=== PATIENT | male | born 1960 | race Caucasian/White ===

== ENCOUNTER 2021-06-19 13:01 | Emergency (ER) | payer OTHER, SELFPAY ==
[2021-06-19 13:14] VITALS: BP 113/61; PULSE 59; RESP 16; TEMP 36.3; O2SAT 97
--- NOTE | 2021-06-19 14:08 | ED.GENADULT ---
HPI - General Adult General Chief complaint: Upper Respiratory Infection Stated complaint: congestion Source: patient Mode of arrival: ambulatory Limitations: no limitations History of Present Illness HPI narrative: Patient is a 60-year-old male presents to the [facility] via POV for evaluation of upper respiratory symptoms that been present for 1 week. Additionally, he reports chest congestion, nasal congestion, sinus congestion, nonproductive cough, and fatigue. Afrin provides minimal relief. Nothing worsens symptoms. Patient reports he is fully vaccinated against Covid. Denies known exposure to sick contacts. Related Data Home Medications Medication Instructions Recorded Confirmed atenolol 50 mg PO DAILY 06/28/19 06/19/21 nitroglycerin [Nitrostat] 0.4 mg SUBLINGUAL PRN PRN 06/28/19 06/19/21 rosuvastatin 20 mg PO DAILY 06/28/19 06/19/21 aspirin [Baby Aspirin] 81 mg PO DAILY 06/19/21 06/19/21 Allergies Allergy/AdvReac Type Severity Reaction Status Date / Time No Known Allergies Allergy Verified 06/19/21 13:13 Review of Systems Review of Systems: Denies history of renal insufficiency, diabetes mellitus, COPD, bronchitis, asthma, and pneumonia. He reports a history of hypertension that is controlled with antihypertensives. History of tobacco use. Patient state he quit using tobacco approximately 15 years ago. Pertinent negatives: fever, sweats, chills, change in appetite, fatigue, skin color changes, headache, nasal discharge, dizziness, lymphadenopathy, ear pain/drainage, chest pain, heart murmurs, heart palpitations, shortness of breath, wheezing, cyanosis, hemoptysis, hoarseness, orthopnea, pleuritic pain, nausea, vomiting, diarrhea, and myalgias. [facility] Past Medical History Medical History (Updated 06/19/21 @ 14:06 by ERICA Erwin, ) CAD (coronary artery disease) HLD (hyperlipidemia) Surgical History Surgical History No significant past surgical history Family History Family History Other Heart disease Hypertension Squamous cell carcinoma Social History Social History Years smoked: 18 Smoking status: Former smoker Comments I have reviewed and agree with the patient's past medical, surgical, social, and family hx as documented by the RN. There is no relevant family history pertinent to the presenting complaint. Exam Narrative: GENERAL: Well-appearing, well-nourished, and in no acute distress. HEAD: Normocephalic, atraumatic. Moderate maxillary sinus tenderness. No facial swelling appreciated. EYES: PERRLA and EOMI. No evidence of erythema, swelling, or drainage. ENT: Bilateral external ears and ear canals normal. Bilateral TMs are normal.No TM perforation. Nares clear, no rhinorrhea or epistaxis. Bilateral turbinates are with moderate erythema and swelling. Mucous membranes moist and pink. Uvula is midline without erythema and swelling. No evidence of petechial rash, cobblestoning, lesions, ulcers, erythema, swelling, exudates, peritonsillar abscess, tenting, or drooling. Breath odor and voice normal. NECK: Supple. No Lymphadenopathy or nuchal rigidity appreciated. CHEST: Bilateral lung angulo are clear to auscultation. No respiratory distress. No evidence of cough or pleuritic cp upon examination. HEART: Regular rate and rhythm. No murmur, gallop, or rub heard. EXTREMITIES: Normal range of motion. No edema. SKIN: Warm, dry, no rash. NEURO: No focal deficits. Alert and oriented x3. Course Course Emergency Course: The patient/guardian displays adequate decision making capability and despite a detailed discussion of alternatives, benefits, risks, and consequences refuses COVID-19 testing Vital Signs Vital signs: Vital Signs Temperature 97.4 F L 06/19/21 13:14 Pulse Rate 59 L 06/19/21 13:14
== END 2021-06-19 14:09 | disposition home or self-care (01) ==
PROVIDERS: Emergency Provider Nurse Practitioner Family
DX: J32.9 Chronic sinusitis, unspecified (principal); J06.9 Acute upper respiratory infection, unspecified; I25.10 Atherosclerotic heart disease of native coronary artery without angina pectoris; E78.5 Hyperlipidemia, unspecified; Z87.891 Personal history of nicotine dependence
CPT/HCPCS: 99213; G0463

== ENCOUNTER 2022-02-11 02:08 | Emergency (ER) | payer OTHER, SELFPAY ==
[2022-02-11 02:12] VITALS: BP 132/70; PULSE 101; RESP 20; TEMP 36.2; O2SAT 96
--- NOTE | 2022-02-11 03:02 | ED.EYEPROB ---
HPI - Eye Problem General Chief complaint: Eye Problems Stated complaint: left eye pain Time Seen by Provider: 02/11/22 02:43 Source: patient and RN notes reviewed Mode of arrival: ambulatory Limitations: no limitations History of Present Illness HPI Narrative: This is 61 year old male who presents for evaluation of left eye irritation. He states he woke up tonight feeling like something was in his left eye. He states he had his to look and they could not find anything. He also placed water in his eye but he feels like something is in it. His left eye is blood shot . He is having difficulty seeing due to the irritation. 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 He did not feel like anything was in his eye at work. He wears glasses and not contacts. He denies headache, nausea or vomiting. Related Data Home Medications Medication Instructions Recorded Confirmed atenolol 50 mg tablet 50 mg PO DAILY 06/28/19 06/19/21 nitroglycerin 0.4 mg sublingual 0.4 mg sublingual PRN PRN Chest 06/28/19 06/19/21 tablet (Nitrostat) Pain rosuvastatin 20 mg tablet 20 mg PO DAILY 06/28/19 06/19/21 aspirin 81 mg chewable tablet 81 mg PO DAILY 06/19/21 06/19/21 Allergies Allergy/AdvReac Type Severity Reaction Status Date / Time No Known Allergies Allergy Verified 02/11/22 02:46 Review of Systems Review of Systems: All systems reviewed & are unremarkable except as noted in HPI and below PMFSH Past Medical History Medical History (Updated 02/11/22 @ 03:10 by Janice Villarreal MD) CAD (coronary artery disease) HLD (hyperlipidemia) Surgical History Surgical History No significant past surgical history Family History Family History Other Heart disease Hypertension Squamous cell carcinoma Social History Social History Years smoked: 18 Smoking status: Former smoker Exam Const: General: no acute distress and alert Orientation/consciousness: patient oriented x3 HENMT: Head: normal to inspection Face and sinus: normal facial exam Mouth: Yes Normal oral and palatal mucosa present Eyes: Eyelids: eyelids normal Conjunctivae: conjunctival abnormality left conjunctival injection diffuse; without subconjunctival hemmorhages Cornea: fluorescein used (punctate area of uptake at 2 o clock) Pupils: Equal, round and reactive pupils present EOM: EOMs intact bilaterally Other: left eye watering, no hyphema Neck: Neck: normal visual inspection Chest: Chest palpation & inspection: normal inspection of the chest Resp: Effort & Inspection: normal respiratory effort Skin: General skin exam: normal color Rashes: no rashes Neuro: General: patient oriented x3 and moves all extremities Gait exam (Neuro): Normal gait present Psych: Mental Status: mental status grossly normal Affect: normal affect Attitude: cooperative Course Reevaluation(s) Reevaluation #1: He states his symptoms resolved with tetracaine. On repeat visual acuity , his vision is 20/25 in left eye now. He will be started on antibiotics eye drops for corneal abrasion. No foreign body seen. Date: 02/11/22 Time: 03:07 Vital Signs Vital signs: Vital Signs Temperature 97.1 F L 02/11/22 02:12 Pulse Rate 101 H 02/11/22 02:12 Respiratory Rate 20 02/11/22 02:12 Blood Pressure 132/70 02/11/22 02:12 Pulse Oximetry 96 02/11/22 02:12 Oxygen Delivery Room Air 02/11/22 02:12 Temperature 97.1 F L 02/11/22 02:12 Pulse Rate 101 H 02/11/22 02:12 Respiratory Rate 20 02/11/22 02:12 Blood Pressure 132/70 02/11/22 02:12 Pulse Oximetry 96 02/11/22 02:12 Oxygen Delivery Room Air 02/11/22 02:12 Discharge Plan Discharge Clinical Impression: Corneal abrasion, left Patient Disposition: Home, Self-Care Condition: Stabl
[2022-02-11] MEDS: CIPROFLOXACIN HCL 0.3% OP SOLN 2.5 ML BTL 2 DROP LEFT EYE (03:18)
== END 2022-02-11 03:22 | disposition home or self-care (01) ==
LOC: ANHED 03:11
PROVIDERS: Emergency Provider General Practice
DX: S05.02XA Injury of conjunctiva and corneal abrasion without foreign body, left eye, initial encounter (principal); I25.10 Atherosclerotic heart disease of native coronary artery without angina pectoris; E78.5 Hyperlipidemia, unspecified; Z87.891 Personal history of nicotine dependence; X58.XXXA Exposure to other specified factors, initial encounter
CPT/HCPCS: 99283

== ENCOUNTER 2023-05-25 08:54 | Emergency (ER) | payer OTHER, SELFPAY ==
--- NOTE | ~2023-05-25 | XR_ITS ---
EXAMINATION: XR ankle LT min 3V DATE: 05/25/2023 09:17 INDICATION: Left ankle pain TECHNIQUE: Anteroposterior, lateral, mortise, and additional oblique view of the ankle were obtained. COMPARISON: None. FINDINGS: Bone alignment is normal. There is a small heterotopic ossification projecting distal to th e medial malleolus. There is mild osteoarthritis of the midfoot. Ankle soft tissue swelling is noted. IMPRESSION: 1. Small heterotopic ossification near the medial malleolus which could reflect prior injury or less likely acute avulsion. Recommend correlation for tenderness at this site. Reviewed, dictated and finalized at location B. NG COOKER IMPRESSION: 1. Small heterotopic ossification near the medial malleolus which could reflect prior injury or less likely acute avulsion. Recommend correlation for tenderne ss at this site.
--- NOTE | 2023-05-25 08:59 | ED.LOWEXIN ---
HPI - Extremity Injury (Lower) General Chief Complaint: Extremity Injury, Lower Stated Complaint: Left Ankle Pain Time Seen by Provider: 05/25/23 08:58 Source: patient Mode of arrival: ambulatory Limitations: no limitations History of Present Illness HPI Narrative: Patient is a 62-year-old male who presents with left ankle pain that started yesterday. Patient denies any injury to ankle. Patient states use doing normal activity throughout the house and when he got up from watching football his ankle hurt. Patient reports it is intermittent pain with walking. States he has had previous injuries to ankle. Denies any numbness, tingling or weakness to foot. Related Data Home Medications Medication Instructions Recorded Confirmed atenolol 50 mg tablet 50 mg PO DAILY 06/28/19 05/25/23 nitroglycerin 0.4 mg sublingual 0.4 mg sublingual PRN PRN Chest 06/28/19 05/25/23 tablet (Nitrostat) Pain rosuvastatin 20 mg tablet 20 mg PO DAILY 06/28/19 05/25/23 aspirin 81 mg chewable tablet 81 mg PO DAILY 06/19/21 05/25/23 Allergies Allergy/AdvReac Type Severity Reaction Status Date / Time No Known Allergies Allergy Verified 05/25/23 09:00 Review of Systems Review of Systems: All systems reviewed & are unremarkable except as noted in HPI and below Constitutional: Constitutional: Denies body ache(s), Denies chills, Denies fatigue, Denies fever(s), Denies headache(s), Denies malaise and Denies weakness Eyes: Eyes: Denies blurry vision, Denies irritation and Denies loss of vision ENT: Denies otalgia, Denies headache(s), Denies nasal discharge, Denies sinus pain and Denies sore throat Cardiovascular: Cardiovascular: Denies chest pain, Denies irregular heart rhythm and Denies dyspnea Respiratory: Respiratory: Denies dyspnea Gastrointestinal: Gastrointestinal: Denies abdominal pain, Denies melena, Denies hematochezia, Denies diarrhea, Denies nausea and Denies vomiting Musculoskeletal: Musculoskeletal: Denies back pain, Denies myalgias and Reports arthralgias Integumentary/Breasts: Skin/Breast: Denies pruritus and Denies rash Neurologic: Denies headache(s), Denies loss of vision and Denies weakness Psychiatric: Psychiatric: Reports no additional psychiatric complaints Endocrine: Endocrine: Denies fatigue PMFSH Past Medical History Medical History CAD (coronary artery disease) HLD (hyperlipidemia) Surgical History Surgical History No significant past surgical history Family History Family History Other Heart disease Hypertension Squamous cell carcinoma Social History Social History Years smoked: 18 Smoking status: Former smoker Comments At time of signature, agree with nursing past medical, surgical, social and family history. There is no relevant family history pertinent to the presenting complaint. Exam Const: General: cooperative, healthy appearing, comfortable, no acute distress and well nourished Nutritional Appearance: well nourished Orientation/consciousness: patient oriented x3 Limitations: no limitations HENMT: Head: normal to inspection, normocephalic and atraumatic Ears: hearing grossly normal bilaterally and external ears normal Face/Nose/Sinus: Normal external nose present, normal facial exam and face symmetric Face and sinus: normal facial exam and face symmetric Mouth: Yes lip normal Eyes: General: appearance normal, both eyes and all related structures Alignment and Position: alignment normal and position normal Periorbital: periorbital findings normal Eyelids: eyelids normal Pupils: Equal, round and reactive pupils present EOM: EOMs intact bilaterally Neck: Neck: normal visual inspection, full ROM and supple Chest: Chest palpation & inspection: normal inspectio
[2023-05-25 09:06] VITALS: BP 117/85; PULSE 55; RESP 16; TEMP 36.8; O2SAT 97
== END 2023-05-25 09:47 | disposition home or self-care (01) ==
PROVIDERS: Emergency Provider Nurse Practitioner Family; PCP Family Medicine
DX: M19.072 Primary osteoarthritis, left ankle and foot (principal); I25.10 Atherosclerotic heart disease of native coronary artery without angina pectoris; E78.5 Hyperlipidemia, unspecified; Z79.82 Long term (current) use of aspirin; Z87.891 Personal history of nicotine dependence
CPT/HCPCS: 73610; 99213; G0463

== ENCOUNTER 2023-09-23 08:09 | Emergency (ER) | payer OTHER, SELFPAY ==
--- NOTE | ~2023-09-23 | XR_ITS ---
EXAMINATION: XR chest 2V DATE: 09/23/2023 08:45 INDICATION: Productive cough TECHNIQUE: Frontal and lateral views of the chest are obtained COMPARISON: 08/10/2015 FINDINGS: There are minimal airspace opacities of the lung bases. There are small pleural effusions. No pneumothorax is identified. The cardiomediastinal silhouette is normal. There is moderate thoracic spondylosis. IMPRESSION: 1. Bibasilar airspace opacities, consistent with atelectasis versus pneumonia. Reviewed, dictated and finalized at location B. ER
[2023-09-23 08:26] VITALS: BP 126/53; PULSE 72; RESP 18; TEMP 37.3; O2SAT 100
--- NOTE | 2023-09-23 08:27 | ED.URI ---
HPI - URI/Sore Throat General Chief Complaint: Upper Respiratory Infection Stated Complaint: Sinus/Fever Time Seen by Provider: 09/23/23 08:27 Source: patient Mode of arrival: ambulatory Limitations: no limitations History of Present Illness HPI Narrative: 62-year-old male presents with complaint of cough for 4 weeks. Reports over the past 2 weeks cough worse with fatigue. Patient reports he has been taking naps in the afternoon which is not normal for him. Patient states that he is getting little sleep at night due to coughing. Patient is not taking any [id number] cough suppressant but has been taking Mucinex without relief. Afebrile. Patient has not seen his primary care physician for this cough. Reports coughing up brown sputum with possible blood. All systems reviewed and negative except as noted above. Related Data Home Medications Medication Instructions Recorded Confirmed atenolol 50 mg tablet 50 mg PO DAILY 06/28/19 09/23/23 nitroglycerin 0.4 mg sublingual 0.4 mg sublingual PRN PRN Chest 06/28/19 09/23/23 tablet (Nitrostat) Pain rosuvastatin 20 mg tablet 20 mg PO DAILY 06/28/19 09/23/23 aspirin 81 mg chewable tablet 81 mg PO DAILY 06/19/21 09/23/23 Testosterone 0.5 mg DIRECTED 09/23/23 09/23/23 Allergies Allergy/AdvReac Type Severity Reaction Status Date / Time No Known Allergies Allergy Verified 09/23/23 08:26 Review of Systems Review of Systems: CONSTITUTIONAL: Denies fever, chills, or sweats. reports fatigue. EYES: Denies visual changes, redness, or discharge. ENT: Denies rhinorrhea, congestion, sore throat, or otalgia. CARDIOVASCULAR: Denies chest pain, palpitations, or edema. RESPIRATORY: Reports cough. Denies dyspnea. GASTROINTESTINAL: Denies abdominal pain, nausea, vomiting, or diarrhea. GENITOURINARY: Denies dysuria or hematuria. SKIN: Denies rash or itching. MUSCULOSKELETAL: Denies back pain, joint pain, or myalgia. NEUROLOGIC: Denies headache, numbness, or weakness. PSYCHIATRIC: Denies anxiety or depression. All other systems reviewed are negative, except as documented in HPI. [facility] Past Medical History Medical History (Updated 09/23/23 @ 09:06 by Melani Barrett NP) CAD (coronary artery disease) HLD (hyperlipidemia) Surgical History Surgical History No significant past surgical history Family History Family History Other Heart disease Hypertension Squamous cell carcinoma Social History Social History Years smoked: 18 Smoking status: Former smoker Comments At time of signature, agree with nursing past medical, surgical, social and family history. There is no relevant family history pertinent to the presenting complaint. Exam Narrative: GENERAL: This is a well-nourished, well-developed patient, in no apparent distress. HEAD: normocephalic, atraumatic. EYES: PERRL. Sclera clear/white. Vision is grossly intact. EARS: External ears normal, auditory canals clear and without drainage, TMs normal without perforation. Hearing grossly intact. NOSE: External nose normal with no obvious nasal discharge, nares without redness, no rhinorrhea. THROAT: Mucous membranes moist, posterior pharynx clear. NECK: Neck supple, non-tender without lymphadenopathy, masses or thyromegaly. CARDIOVASCULAR: Regular rate and rhythm without murmurs, gallops, or rubs. RESPIRATORY: Decreased lung sounds to lower lung field otherwise clear. Breath sounds equal bilaterally. No wheezes, rales, or rhonchi. SKIN: warm, Dry, intact with no suspicious lesions or rash, good texture and turgor. NEURO: awake, alert, and oriented to person, place and time. There were no obvious focal neurologic abnormalities. EXTREMITIES: No joint tenderness, effusion, or edema noted. Course Course Level of Care: Express
== END 2023-09-23 09:10 | disposition home or self-care (01) ==
PROVIDERS: Emergency Provider Nurse Practitioner Family; PCP Family Medicine
DX: J18.9 Pneumonia, unspecified organism (principal); Z20.822 Contact with and (suspected) exposure to COVID-19; I25.10 Atherosclerotic heart disease of native coronary artery without angina pectoris; E78.5 Hyperlipidemia, unspecified; Z79.82 Long term (current) use of aspirin
CPT/HCPCS: 71046; 87426; 87804; 99213; G0463

== ENCOUNTER 2024-02-06 08:46 | Outpatient (CLI) | payer OTHER, SELFPAY ==
--- NOTE | ~2024-02-06 | XR_ITS ---
XR ankle LT min 3V 02/06/2024 09:23 Indication: Left ankle pain Procedure: 4 views left ankle Comparison: No prior studies for comparison. Findings: Ankle mortise intact. Talar dome is normal. There is a degenerative calcaneal enthesophyte. No focal soft tissue abnormality. No foreign bodies. There are mild degenerative changes of the midf oot, partially visualized. Impression: 1: No significant bone or joint abnormality. Reviewed, dictated and finalized at location B. Impression: 1: No significant bone or joint abnormality.
== END 2024-02-06 08:47 ==
PROVIDERS: PCP Family Medicine; Visit Provider Registered Nurse
DX: M25.572 Pain in left ankle and joints of left foot (principal)
CPT/HCPCS: 73610

== ENCOUNTER 2024-12-01 13:47 | Emergency (ER) | payer OTHER, SELFPAY ==
[2024-12-01 13:59] VITALS: BP 136/62; PULSE 78; RESP 20; TEMP 36.3; O2SAT 96
--- NOTE | 2024-12-01 13:59 | ED_ITS ---
HPI - URI/Sore Throat General Chief Complaint: Upper Respiratory Infection Stated Complaint: Wheezing Time Seen by Provider: 12/01/24 13:49 Source: patient Mode of arrival: ambulatory Limitations: no limitations History of Present Illness HPI Narrative: Patient is a 64-year-old male who presents with 3 days of productive cough and 1 day of wheezing with fatigue. Reports productive cough that is clear mucus. Denies any fever, chills, nausea, vomiting, diarrhea, sore throat, congestion. Has taken Benadryl for symptoms. History of pneumonia 2 times last year. Related Data Home Medications Medication Instructions Recorded Confirmed Last Taken Type atenolol 50 mg tablet 50 mg PO DAILY 06/28/19 12/01/24 Unknown History nitroglycerin 0.4 mg sublingual 0.4 mg sublingual PRN PRN Chest 06/28/19 12/01/24 Unknown History tablet (Nitrostat) Pain rosuvastatin 20 mg tablet 20 mg PO DAILY 06/28/19 12/01/24 Unknown History aspirin 81 mg chewable tablet 81 mg PO DAILY 06/19/21 12/01/24 Unknown History Testosterone 0.5 mg BYMOUTH DIRECTED 09/23/23 12/01/24 Unknown History hydrochlorothiazide 12.5 mg capsule 12.5 mg PO DAILY 12/01/24 12/01/24 Unknown History Allergies Allergy/AdvReac Type Severity Reaction Status Date / Time No Known Allergies Allergy Verified 12/01/24 14:45 Review of Systems Review of Systems: All systems reviewed & are unremarkable except as noted in HPI and below Constitutional: Constitutional: Denies chills, Denies fatigue, Denies fever(s), Denies headache(s), Denies malaise and Denies weakness Eyes: Eyes: Denies blurry vision, Denies itchy eyes and Denies loss of vision ENT: Denies otalgia, Denies headache(s), Denies nasal congestion, Denies sinus pain and Denies sore throat Cardiovascular: Cardiovascular: Denies chest pain, Denies irregular heart rhythm and Denies dyspnea Respiratory: Respiratory: Reports cough, Denies dyspnea and Reports wheezing Gastrointestinal: Gastrointestinal: Denies abdominal pain, Denies diarrhea, Denies nausea and Denies vomiting Musculoskeletal: Musculoskeletal: Denies back pain, Denies myalgias and Denies arthralgias Integumentary/Breasts: Skin/Breast: Denies pruritus and Denies rash Neurologic: Denies headache(s), Denies loss of vision and Denies weakness Psychiatric: Psychiatric: Reports no additional psychiatric complaints Endocrine: Endocrine: Denies fatigue Allergic/Immunologic: Allergic/Immunologic: Denies itchy eyes PMFSH Past Medical History Medical History (Updated 12/01/24 @ 16:05 by Fatou Israel APRN) HLD (hyperlipidemia) CAD (coronary artery disease) Surgical History Surgical History No significant past surgical history Family History Family History Other Heart disease Hypertension Squamous cell carcinoma Social History Social History Years smoked: 18 Smoking status: Former smoker Comments At time of signature, agree with nursing past medical, surgical, social and family history. There is no relevant family history pertinent to the presenting complaint. Exam Const: General: cooperative, healthy appearing, comfortable, no acute distress and well nourished Nutritional Appearance: well nourished Orientation/consciousness: patient oriented x3 Limitations: no limitations HENMT: Head: normal to inspection, normocephalic and atraumatic Ears: hearing grossly normal bilaterally, external ears normal, TM's normal bilaterally, EAC's normal and no periauricular adenopathy Face/Nose/Sinus: Normal external nose present, Abnormal mucous membranes and turbinates present erythematous bilateral and diffuse, normal facial exam, sinuses nontender and face symmetric Face and sinus: normal facial exam, sinuses nontender and face symmetric Mouth: Yes Normal oral and palatal mucosa present, Yes lip normal, Yes tongue normal, Yes Normal salivary glands and ducts present, Yes oropharynx normal and Yes moist mucous membranes Teeth and gingiva: dentition normal Throat: posterior oropharynx normal, tonsils normal and uvula midline Eyes: General: appearance normal, both eyes and all related structures Alignment and Position: alignment normal and position normal Periorbital: periorbital findings normal Eyelids: eyelids normal Pupils: Equal, round and reactive pupils present Neck: Neck: normal visual inspection, full ROM, no lymphadenopathy and supple Chest: Chest palpation & inspection: normal inspection of the chest and normal palpation of entire chest wall Resp: Effort & Inspection: normal respiratory effort, able to speak in complete sentences and Actively coughing productive Auscultation: clear to auscultation bilaterally, no crackles, no rales, no rhonchi and no wheezes Cardio: Rate: regular rate Rhythm: regular rhythm Heart sounds: S1 normal heart sound present and S2 normal heart sound present GI: Inspection: normal to inspection Skin: General skin exam: normal color and no rashes or lesions noted Neuro: General: patient oriented x3 and moves all extremities Cranial nerves: Yes Equal, round and reactive pupils present Speech: normal speech Gait exam (Neuro): Normal gait present Extrem: General: normal to inspection, full ROM and no edema Psych: Appearance: grossly normal and well kempt Mental Status: mental status grossly normal Speech and movement: Normal speech and movement present Affect: normal affect Attitude: cooperative Thought process: Normal thought process present Course Course Emergency Course: Discharge instructions reviewed with patient, as well as provided in writing per nursing staff. The instructions also include specific and strict return/GO TO THE ER as well as f/u information. All questions have been answered, and the patient deny any further questions with discharge and discharge plan. Portions of this record may have been created with voice recognition software Level of Care: Express Care Visit Vital Signs Vital signs: Vital Signs Temperature 36.3 C L 12/01/24 13:59 Pulse Rate 78 12/01/24 13:59 Respiratory Rate 20 12/01/24 13:59 Blood Pressure 136/62 12/01/24 13:59 Pulse Oximetry 96 12/01/24 13:59 Oxygen Delivery Room Air 12/01/24 13:59 Temperature 36.3 C L 12/01/24 13:59 Pulse Rate 78 12/01/24 13:59 Respiratory Rate 20 12/01/24 13:59 Blood Pressure 136/62 12/01/24 13:59 Pulse Oximetry 96 12/01/24 13:59 Oxygen Delivery Room Air 12/01/24 13:59 Reviewed MDM - URI/Sore Throat MDM Narrative Medical decision making narrative: Pt well hydrated appearing, in no respiratory distress, hemodynamically stable. Recommend supportive care. The patient is stable at time of discharge the clinical impression was discussed and the patient was given the opportunity to ask questions, which were addressed as completely as possible given the information available at present. Anticipatory guidance and return to care precautions were discussed and the importance of primary care follow-up was stressed and encouraged. The patient voiced understanding of the plan, indications to return, and the need for follow-up. Exam findings show no acute concerns or changes Patient is appropriate for outpatient treatment and follow-up. Differential diagnosis considered: Mcgovern virus, strep pharyngitis, allergic rhinitis, upper respiratory tract infection, sinusitis, rhinosinusitis, nasopharyngitis. viral pharyngitis, otitis media, otitis externa, otitis effusion, foreign body, cerumen impaction, viral syndrome, and influenza. Medical Records Attestation: I reviewed the patient's medical records. Lab Data Attestation: I reviewed the patient's lab results. Labs: Lab Results 12/01/24 12/01/24 12/01/24 Range/Units 15:32 15:32 15:32 POC Influenza A Ag Negative Negative (Negative) POC Influenza B Ag Negative Negative (Negative) POC SARS CoV-2 Ag Negative (Negative) 12/01/24 Range/Units 15:32 POC Influenza A Ag (Negative) POC Influenza B Ag (Negative) POC SARS CoV-2 Ag Negative (Negative) Discharge Plan Discharge Clinical Impression: Upper respiratory infection Qualifiers: URI type: unspecified viral URI Qualified Code(s): J06.9 - Acute upper respiratory infection, unspecified Patient Disposition: Home Condition: Stable Instructions: Upper Respiratory Infection (ED) Additional Instructions: Use albuterol inhaler with spacer. Use Tessalon Perles as needed for cough Your Covid and flu are both negative Your symptoms are likely due to a viral illness, which is not treated with antibiotics. Viral symptoms can be present for up to a few weeks. -For pain/fever, you may take: Tylenol 650-1000mg by mouth every 4-6 hours. Do not exceed 4000mg in 24 hours. Advil (Ibuprofen) 600 mg by mouth every 6 hours. Do not exceed 2400mg in 24 hours. 8 AM: Tylenol 11 AM: Ibuprofen 2 PM: Tylenol 5 PM: Ibuprofen 8 PM: Tylenol 11 PM: Ibuprofen 2 AM: Tylenol 5 AM: Ibuprofen -Antihistamine medication such as Benadryl/Zyrtec at night and Claritin/Jacinta during the day can help improve symptoms. -Use Flonase twice a day for 5 days then daily to help reduce the inflammation and dry up your sinuses. -You can also use Sudafed behind the pharmacy counter(12 or 24 hour). Be sure to drink plenty of water with these medications at least 8 ounces with every dose and it is important to drink 8 to 10 glasses of water per day. Water is a natural decongestant -Eat and drink things that are easy to swallow, like tea or soup, or popsicles. -Oral rinses such as: Salt water gargles and/or may use topical anesthetic (eg. Chloraseptic spray) or lozenges to relieve dryness or throat pain). -Frequent hand washing or hand cilnical scientist is one of the best ways to prevent spread of infection. -Using a vaporizer or humidifier at night will also help thin secretions and help with coughing up phlegm. Call your Primary Care Doctor and make a follow-up appointment in 3 days. If your cough worsens, you develop a fever greater than 103, you develop shaking chills, a fast heartbeat, trouble breathing and/or feel you are are breathing much faster than usual, call your Primary Care Doctor or go to the ER. Patient Language: Yakut Prescriptions: New benzonatate 100 mg capsule 100 mg PO BID PRN (Reason: cough) Qty: 14 0RF albuterol sulfate 90 mcg/actuation HFA aerosol inhaler 2 puff inhalation QID PRN (Reason: shortness of breath or wheezing) Qty: 6.7 0RF (DME) Aerochamber MV Spacer See Rx Instructions .Route Qty: 1 0RF Rx Instructions: As directed No Action hydrochlorothiazide 12.5 mg capsule 12.5 mg PO DAILY nitroglycerin [Nitrostat] 0.4 mg tablet, sublingual 0.4 mg sublingual PRN PRN (Reason: Chest Pain) atenolol 50 mg tablet 50 mg PO DAILY rosuvastatin 20 mg tablet 20 mg PO DAILY aspirin [Baby Aspirin] 81 mg Tablet,Chewable 81 mg PO DAILY Testosterone 0.5 mg BYMOUTH DIRECTED Rx Instructions: Twice weekly doxycycline hyclate 100 mg capsule 100 mg PO BID 7 Days Qty: 14 0RF Follow-up/Referrals: Alex Dick MD [Primary Care Provider] - 3 Days Time of Disposition: 16:06
[2024-12-01 15:33] LABS: EDINFLUASCREEN Negative (Negative); EDINFLUBSCREEN Negative (Negative)
[2024-12-01 15:34] LABS: EDCOVIDSCREEN Negative (Negative); EDINFLUASCREEN Negative (Negative); EDINFLUBSCREEN Negative (Negative)
== END 2024-12-01 16:13 | disposition home or self-care (01) ==
PROVIDERS: Emergency Provider Nurse Practitioner Family; PCP Family Medicine
DX: J06.9 Acute upper respiratory infection, unspecified (principal); R53.83 Other fatigue; I25.10 Atherosclerotic heart disease of native coronary artery without angina pectoris; E78.5 Hyperlipidemia, unspecified; Z87.891 Personal history of nicotine dependence; Z79.82 Long term (current) use of aspirin; Z79.899 Other long term (current) drug therapy; Z20.822 Contact with and (suspected) exposure to COVID-19
CPT/HCPCS: 87426; 87804; 99213; G0463

== ENCOUNTER 2025-07-04 08:33 | Emergency (ER) | payer OTHER, SELFPAY ==
--- NOTE | 2025-07-04 08:34 | ED.GENADULT ---
HPI - General Adult General Chief complaint: Skin/Abscess/Foreign Body Stated complaint: Lower Back Neck/Head Pain Time Seen by Provider: 07/04/25 08:47 Source: patient, RN notes reviewed and old records reviewed Mode of arrival: ambulatory Limitations: no limitations History of Present Illness HPI narrative: 64-year-old male presents to the [facility] with complaints of posterior head pain, radiating up into his head and down his neck. Denies any injury. Denies fevers. Denies any blurry vision or change in vision. No neuro deficits. Related Data Home Medications ?Medication ?Instructions ?Recorded ?Confirmed ?Last Taken ?Type atenolol 50 mg tablet 50 mg PO DAILY 06/28/19 12/01/24 Unknown History nitroglycerin 0.4 mg sublingual 0.4 mg sublingual PRN PRN Chest 06/28/19 12/01/24 Unknown History tablet (Nitrostat) Pain rosuvastatin 20 mg tablet 20 mg PO DAILY 06/28/19 12/01/24 Unknown History aspirin 81 mg chewable tablet 81 mg PO DAILY 06/19/21 12/01/24 Unknown History Testosterone 0.5 mg BYMOUTH DIRECTED 09/23/23 12/01/24 Unknown History hydrochlorothiazide 12.5 mg capsule 12.5 mg PO DAILY 12/01/24 12/01/24 Unknown History Allergies Allergy/AdvReac Type Severity Reaction Status Date / Time No Known Allergies Allergy Verified 07/04/25 08:38 Review of Systems Review of Systems: All systems reviewed & are unremarkable except as noted in HPI and below Constitutional: Constitutional: Reports no additional constitutional complaints ENT: Reports system reviewed and no additional complaints, except as documented Cardiovascular: Cardiovascular: Reports no additional cardiovascular complaints, Denies chest pain and Denies dyspnea Respiratory: Respiratory: Reports no additional respiratory complaints, Denies chest congestion, Denies cough and Denies dyspnea Musculoskeletal: Musculoskeletal: Reports no additional musculoskeletal complaints Integumentary/Breasts: Skin/Breast: Reports as per HPI COUNT INCLUDES THE [facility] Past Medical History Medical History HLD (hyperlipidemia) CAD (coronary artery disease) Surgical History Surgical History No significant past surgical history Family History Family History Other Heart disease Hypertension Squamous cell carcinoma Social History Social History Years smoked: 18 Smoking status: Former smoker Comments At the time of my signature, I reviewed and agree with the nursing past medical, surgical, social, and family history. There is no relevant family history pertinent to the patient complaint. Exam Const: General: cooperative, healthy appearing, comfortable, no acute distress, well developed, alert and well nourished Nutritional Appearance: well nourished Orientation/consciousness: patient oriented x3 Limitations: no limitations HENMT: Head: normal to inspection Head images:  1. 3x1.5 warm, erythema without fluctuance. No drainage. Mouth: Yes Normal oral and palatal mucosa present, Yes lip normal, Yes tongue normal and Yes moist mucous membranes Eyes: General: appearance normal, both eyes and all related structures Alignment and Position: alignment normal Neck: Neck: normal visual inspection, full ROM, no lymphadenopathy and no meningeal signs Chest: Chest palpation & inspection: normal inspection of the chest Resp: Effort & Inspection: normal respiratory effort and able to speak in complete sentences Auscultation: clear to auscultation bilaterally, no crackles, no rales, no rhonchi and no wheezes Cardio: Rate: regular rate Skin: General skin exam: normal color and no rashes or lesions noted Neuro: General: patient oriented x3, gait normal, moves all extremities and no meningeal signs Cognition (Neuro): normal cognition Speech: normal speech Gait exam (Neuro): Normal gait present Extrem: General: normal to inspection, full ROM, capillary refill normal and normal gait Psych: Appearance: grossly normal and well kempt Mental Status: mental status grossly normal Speech and movement: Normal speech and movement present and Clear speech present Affect: normal affect Attitude: cooperative Course Course Level of Care: Express Care Visit Vital Signs Vital signs: Vital Signs Temperature 97.5 F L 07/04/25 08:44 Pulse Rate 63 07/04/25 08:44 Respiratory Rate 18 07/04/25 08:44 Blood Pressure 137/56 L 07/04/25 08:44 Pulse Oximetry 97 07/04/25 08:44 Oxygen Delivery Room Air 07/04/25 08:44 Temperature 97.5 F L 07/04/25 08:44 Pulse Rate 63 07/04/25 08:44 Respiratory Rate 18 07/04/25 08:44 Blood Pressure 137/56 L 07/04/25 08:44 Pulse Oximetry 97 07/04/25 08:44 Oxygen Delivery Room Air 07/04/25 08:44 reviewed MDM MDM Narrative Medical decision making narrative: patient sitting in exam room. Patient is nontoxic, vitals stable. Patient presents with redness and mild swelling to the posterior head. Concern for possible cellulitis. Patient has a primary as well as a claims adjustor, will follow-up with will prescribe antibiotic, discussed signs and symptoms to proceed to the emergency room which patient and understandings Discharge instructions reviewed with patient, as well as provided in writing per nursing staff. The instructions also include specific and strict return/GO TO THE ER as well as f/u information. All questions have been answered, and the patient deny any further questions with discharge and discharge plan. Some parts of this dictation were generated by voice recognition software and may contain typographical and/or grammatical inaccuracies. Differential Diagnosis Differential Diagnosis: Differential diagnostic considerations for skin/abscess/foreign body issues include abscess of skin or subcutaneous tissue, viral exanthem, dermatophytosis, urticaria, herpes zoster, allergic reaction to drug, cellulitis, eczema, insect bites, impetigo, contact dermatitis, vasculitis. Discharge Plan Discharge Clinical Impression: Cellulitis of head or scalp Patient Disposition: Home Condition: Stable Instructions: Antibiotic Form, Cellulitis (ED) Additional Instructions: Wash area with warm soapy water twice a day, pat dry. Apply warm compresses every 2-3 hours for 15-20 minutes. Take Keflex, antibiotic as prescribed take Motrin alternating with Tylenol as needed for pain was follow-up with your primary care provider and/or claims adjustor for new or worsening symptoms please proceed to the emergency room Patient Language: Syriac Prescriptions: New cephalexin 500 mg capsule 500 mg PO QID 7 Days Qty: 28 0RF No Action hydrochlorothiazide 12.5 mg capsule 12.5 mg PO DAILY albuterol sulfate 90 mcg/actuation HFA aerosol inhaler 2 puff inhalation QID PRN (Reason: shortness of breath or wheezing) Qty: 6.7 0RF (DME) Aerochamber MV Spacer See Rx Instructions .Route Qty: 1 0RF Rx Instructions: As directed nitroglycerin [Nitrostat] 0.4 mg tablet, sublingual 0.4 mg sublingual PRN PRN (Reason: Chest Pain) atenolol 50 mg tablet 50 mg PO DAILY rosuvastatin 20 mg tablet 20 mg PO DAILY aspirin [Baby Aspirin] 81 mg Tablet,Chewable 81 mg PO DAILY Testosterone 0.5 mg BYMOUTH DIRECTED Rx Instructions: Twice weekly Follow-up/Referrals: lAex iDck MD [Primary Care Provider, Family Practice] - 1 Week Clinical Impression: Cellulitis of head or scalp Stand Alone Forms: Work/School Release IP Time of Disposition: 08:56
[2025-07-04 08:44] VITALS: BP 137/56; PULSE 63; RESP 18; TEMP 36.4; O2SAT 97
== END 2025-07-04 09:00 | disposition home or self-care (01) ==
PROVIDERS: Emergency Provider Nurse Practitioner; PCP Family Medicine
DX: L03.811 Cellulitis of head [any part, except face] (principal); Z87.891 Personal history of nicotine dependence; I25.10 Atherosclerotic heart disease of native coronary artery without angina pectoris; E78.5 Hyperlipidemia, unspecified
CPT/HCPCS: 99213; G0463